=== PATIENT | male | born 1995 | race Caucasian/White ===

== ENCOUNTER 2024-03-05 19:50 | Emergency (ER) | payer BC ==
[~2024-03-05] VITALS: Ht 175.3 cm; Wt 97.4 kg
[2024-03-05 21:15] VITALS: BP 126/80; PULSE 80; RESP 18; TEMP 98.8; O2SAT 99
== END 2024-03-05 21:16 | disposition home or self-care (01) ==
LOC: ER 19:51
DX: S80.11XA Contusion of right lower leg, initial encounter (principal); W22.8XXA Striking against or struck by other objects, initial encounter; Y93.89 Activity, other specified; Y92.89 Other specified places as the place of occurrence of the external cause; Y99.8 Other external cause status
CPT/HCPCS: 73590; 99283